=== PATIENT | female | born 1985 | race Caucasian/White ===

== ENCOUNTER 2018-03-07 12:01 | Emergency (ER) | payer OTHER ==
[2018-03-07 12:35] VITALS: BP 105/67
--- NOTE | 2018-03-07 13:15 | UC ---
Throat Pain/Nasal Zhang HPI - HPI Summary HPI Summary: 32 yo female presents with sinus pressure, headache, fatigue, dry cough, body aches, and nausea for 2 days. She has been taking tylenol for her symptoms with no relief. She works from home and denies sick contacts. She vomited once this morning and does not feel hungry. Denies fever, chills, sore throat, SOB, chest pain. - History of Current Complaint Chief Complaint: UCGeneralIllness Stated Complaint: SORE THROAT, COUGH, AND NAUSEA Time Seen by Provider: 03/07/18 13:14 Hx Obtained From: Patient Hx Last Menstrual Period: no periods Onset/Duration: Gradual Onset Severity: Moderate Pain Intensity: 6 Pain Scale Used: 0-10 Numeric Cough: Nonproductive - Allergies/Home Medications Allergies/Adverse Reactions: Allergies Allergy/AdvReac Type Severity Reaction Status Date / Time codeine AdvReac Severe Vomiting Verified 03/07/18 12:28 Home Medications: Home Medications Acetaminophen [Acetaminophen Extra Strength] 1,000 mg PO ONCE 03/07/18 [History Confirmed 03/07/18] Doxycycline Hyclate 20 mg PO DAILY 03/07/18 [History Confirmed 03/07/18] Etonogest/Eth.estradiol (Nf) [Nuvaring Vaginal Ring] 1 each VAGINAL .SEE COMMENTS 03/07/18 [History Confirmed 03/07/18] PMH/Surg Hx/FS Hx/Imm Hx - Additional Past Medical History Additional PMH: None - Surgical History Surgical History: None - Family History Known Family History: Positive: None - Social History Occupation: Employed Full-time Lives: With Family Alcohol Use: Occasionally Substance Use Type: None Smoking Status (MU): Never Smoked Tobacco Review of Systems Constitutional: Chills, Fatigue, Other - Body aches Skin: Negative Eyes: Negative ENT: Sinus Pain/Tenderness Respiratory: Cough Cardiovascular: Negative Gastrointestinal: Vomiting, Nausea Genitourinary: Negative Neurovascular: Negative Musculoskeletal: Negative Neurological: Headache Psychological: Negative All Other Systems Reviewed And Are Negative: Yes Physical Exam - Summary Physical Exam Summary: GENERAL: NAD. WDWN. No pain distress. SKIN: No rashes, sores, lesions, or open wounds. HEENT: Head: AT/NC Eyes: EOM intact. Conjunctiva clear without inflammation or discharge. Ears: Hearing grossly normal. TMs intact, no bulging, erythema, or edema. Nose: Nasal mucosa pink and moist. NTTP maxillary and frontal sinus. Throat: Posterior oropharynx without exudates, erythema, or tonsillar enlargement. Uvula midline. NECK: Supple. Nontender. No lymphadenopathy. CHEST: CTAB. No r/r/w. No accessory muscle use. Breathing comfortably and in no distress. CV: RRR. Without m/r/g. Pulses intact. Cap refill <2seconds ABDOMEN: Soft. NTTP. No distention or guarding. No CVA tenderness. Bowel sounds present NEURO: Alert. PSYCH: Age appropriate behavior. Triage Information Reviewed: Yes Vital Signs: Initial Vital Signs Temp 98.3 F 03/07/18 12:30 Pulse 86 03/07/18 12:30 Resp 18 03/07/18 12:30 BP 105/67 03/07/18 12:30 Pulse Ox 100 03/07/18 12:30 Vital Signs Reviewed: Yes Throat Pain/Nasal Course/Dx - Course Course Of Treatment: She is well appearing and afebrile. Suspect viral illness. She was given Toradol 60mg IM for her headache. Will rx for tessalon for her cough. Advised to drink plenty of water and continue taking tylenol. - Differential Dx/Diagnosis Provider Diagnoses: Viral syndrome. Headache Discharge - Sign-Out/Discharge Documenting (check all that apply): Patient Departure All imaging exams completed and their final reports reviewed: No Studies - Discharge Plan Condition: Stable Disposition: HOME Prescriptions: Benzonatate CAP* [Tessalon 100 MG CAP*] 100 mg PO TID PRN #21 cap PRN Reason: Cough Patient Education Materials: Viral Syndrome (ED), Acute Cough (ED) Referrals: Kerri Cason MD [Primary Care Provider] - Additional Instructions: If you develop a fever, shortness of breath, chest pain, new or worsening symptoms - please call your PCP or go to the ED. 1) Please try [id number] Delsym for your cough - Billing Disposition and Condition Condition: STABLE Disposition: Home
[2018-03-07] MEDS ORDERED: Ketorolac INJ* 60 MG/2 ML VIAL IM ONE (13:28)
== END 2018-03-07 14:00 | disposition home or self-care (01) ==
LOC: UCEAST 12:01
DX: B34.9 Viral infection, unspecified (principal); R51 Headache; Z88.5 Allergy status to narcotic agent
CPT/HCPCS: 99212; G0463; J1885